=== PATIENT | female | born 1965 | race Caucasian/White ===

== ENCOUNTER 2021-10-06 10:46 | Inpatient (IN) ==
--- NOTE | 2021-09-21 11:41 | PAT Medication Instructions ---
Medication Instructions Date of Service September 21, 2021 Home Medications albuterol sulfate 90 mcg/actuation aerosol inhaler 2 puff INHALATION QID PRN fluticasone 500 mcg-salmeterol 50 mcg/dose blistr powdr for inhalation (Advair Diskus) 1 inh INHALATION BID ipratropium 0.5 mg-albuterol 3 mg (2.5 mg base)/3 mL nebulization soln 3 ml INHALATION QID PRN montelukast 10 mg tablet (Singulair) 10 mg PO QAM multivitamin 1 cap PO QAM diclofenac sodium 75 mg tablet,delayed release 75 mg PO BID tramadol 50 mg tablet 50 mg PO BID ASK your surgeon for instructions diclofenac sodium 75 mg tablet,delayed release 75 mg PO BID DO NOT take the morning of surgery montelukast 10 mg tablet (Singulair) 10 mg PO QAM multivitamin 1 cap PO QAM Take morning of surgery With a small sip of water, OTHERWISE NOTHING TO EAT OR DRINK AFTER MIDNIGHT: albuterol sulfate 90 mcg/actuation aerosol inhaler 2 puff INHALATION QID PRN (use if needed; please bring rescue inhaler with you to hospital day of surgery if possible) fluticasone 500 mcg-salmeterol 50 mcg/dose blistr powdr for inhalation (Advair Diskus) 1 inh INHALATION BID ipratropium 0.5 mg-albuterol 3 mg (2.5 mg base)/3 mL nebulization soln 3 ml INHALATION QID PRN (if needed) tramadol 50 mg tablet 50 mg PO BID (okay to take up to 4 hours prior to surgery if needed) Take evening before surgery albuterol sulfate 90 mcg/actuation aerosol inhaler 2 puff INHALATION QID PRN (if needed) fluticasone 500 mcg-salmeterol 50 mcg/dose blistr powdr for inhalation (Advair Diskus) 1 inh INHALATION BID ipratropium 0.5 mg-albuterol 3 mg (2.5 mg base)/3 mL nebulization soln 3 ml INHALATION QID PRN (if needed) tramadol 50 mg tablet 50 mg PO BID Other Notes If you have any questions please call us at [phone] or [phone] or [phone] or [phone]
--- NOTE | 2021-09-23 11:36 | Anesthesiology Consultation ---
Date of Service September 23, 2021 Assessment & Plan (1) Encounter for pre-operative examination: Chart Review Chart Review: Acceptable Risk for Surgery (pending surgeon ordered PCP clearance (09/30/21) and preop Covid testing results ) and Patient seen in Pre Admission Testing Awaiting surgeon ordered PCP clearance scheduled 09/30/21 Per PAT appt on 09/23/21, patient denies any recent travel or large group activities. No known Covid positive exposures or Covid related symptoms. No known Covid infection in the past 90 days. Pt is vaccinated for Covid. Preop Covid testing scheduled 10/04/21= will await results. Educated on importance of self quarantining, social distancing and wearing mask in public for the patient one week prior to surgery and after Covid testing done Consults Requested Pre-Anesthesia Teaching/Discussion Notes: Instructed NPO after midnight before surgery,except medications with 15 cc of water. Medication instructions prov ided according to the PAT guidelines. History Surgery Operation Date: 10/06/21 13:15 Proposed Procedures p Left Total Shoulder Arthroplasty Reverse - Des Hancock MD Height/Weight Height: 5 ft 2.5 in Weight: 125.5 kg Allergies Allergy/AdvReac Type Severity Reaction Status Date / Time codeine AdvReac Vomiting Verified 09/21/21 10:07 Medications Home Medications Medication Instructions Recorded Confirmed Last Taken albuterol sulfate 90 mcg/actuation 2 puff INHALATION QID PRN 07/28/20 09/21/21 08/12/20 08:44 aerosol inhaler fluticasone 500 mcg-salmeterol 50 1 inh INHALATION BID 07/28/20 09/21/21 08/12/20 06:30 mcg/dose blistr powdr for inhalation (Advair Diskus) ipratropium 0.5 mg-albuterol 3 mg 3 ml INHALATION QID PRN 07/28/20 09/21/21 08/12/20 06:30 (2.5 mg base)/3 mL nebulization soln montelukast 10 mg tablet 10 mg PO QAM 07/28/20 09/21/21 08/12/20 03:45 (Singulair) multivitamin 1 cap PO QAM 07/28/20 09/21/21 08/11/20 10:00 diclofenac sodium 75 mg 75 mg PO BID 03/15/21 09/21/21 Unknown tablet,delayed release tramadol 50 mg tablet 50 mg PO BID 03/15/21 09/21/21 Unknown Past Medical History Medical History Asthma Controlled Chronic back pain Chronic obstructive pulmonary disease Degenerative disc disease Morbid obesity Osteoarthritis Exercise / Class Metabolic Activity III < 4 Walking/Shop/Light housework (one flight of stairs - no chest pain, mild SOB ) Past Surgical History Surgical History History of bilateral tubal ligation History of section x2 History of colonoscopy History of repair of rotator cuff Left shoulder arthroscopy (08/12/20): Grade 3 view, MAC3.0, ETT 7.0 + PNB at [facility] History of tooth extraction History of total hip arthroplasty left S/P epidural steroid injection Past Anesthesia History No Hx of Anesthesia Complications (with exception to being mildly "emotional" post op ) and No Family Hx of Anesthesia Complications History of PONV No Hx of PONV and No Hx of Motion Sickness Social History Smoking Status: Former smoker tobacco type: cigarettes Do You Dip or Chew Tobacco: No Smoking End Date: 5 years ago Hx Alcohol Use: No Hx Substance Use: No substance use type: does not use Review of Systems Rare reflux - relieved with either Tums or Prilosec- feels diet dependent Occ snoring - no known witnessed apnea - hx of sleep study >10 years ago- no known YISSEL Patient denies chest pain, shortness of breath at rest cough, wheezing, palpitations. No hx of seizures, stroke, ID. No hx of blood clots or blood transfusions Physical Exam Vital Signs VITALS BP 120/88 P 88 TEMP 98.4 SP02 96% RESP 16 Constitutional no acute distress ENMT Mouth: no TMJ clicking Thyromental Distance: > or= 3.5 Finger Breadths (3.5) Mallampati Class: I Partial upper denture Neck neck extension not limited Respiratory normal respiratory effort; no respiratory distress Auscultation: lungs clear to auscultation bilaterally and + diminished lung sounds (throughout ); no wheezes Cardiovascular Rate/Rhythm: regular rate and regular rhythm Heart Sounds: no murmur Vessels: no carotid bruit Musculoskeletal Spine: no pain with cervical ROM Extremities: extremities normal to inspection Psychiatric Orientation: alert Lab Results Anesthesia Preop Results Results Anesthesia Widget: WBC 9.18 K/uL (4.8-10.8) 09/23/21 Hgb 14.7 g/dL (12.0-16.0) 09/23/21 Hct 44.2 % (37-47) 09/23/21 Plt 335 K/uL (130-400) 09/23/21 Na 139 mmol/L (136-145) 09/23/21 K 4.7 mmol/L (3.5-5.1) 09/23/21 Cl 106 mmol/L (98-107) 09/23/21 CO2 25 mmol/L (21-32) 09/23/21 BUN 16 mg/dl (6-23) 09/23/21 Creat 0.66 mg/dl (0.6-1.2) 09/23/21 Glucose Level 106 mg/dl (70-99(Fasting)) H 09/23/21 PT 10.3 Seconds (9.0-12.0) 09/23/21 PTT 27.9 Seconds (21.0-31.0) 09/23/21 INR 1.0 (0.9-1.1) 09/23/21 HA1c 5.6 % (4.5-5.6) 09/23/21 Urine Color Dark Yellow 09/23/21 Urine Appearance Clear (Clear) 09/23/21 Urine pH 5.0 (4.5-7.5) 09/23/21 Urine Specific [place] > 1.045 (1.000-1.030) H 09/23/21 Urine Protein Trace (Negative) H 09/23/21 Urine Glucose (UA) Negative (Negative) 09/23/21 Urine Ketones Trace (Negative) H 09/23/21 Urine Blood Negative (Negative) 09/23/21 Urine Nitrite Negative (Negative) 09/23/21 Urine Bilirubin 1+ (Negative) H 09/23/21 Urine Urobilinogen Negative (Negative) 09/23/21 Urine Leukocyte Esterase Trace (Negative) H 09/23/21 Urine WBC (Auto) 1-5 /hpf (0-5) 09/23/21 Urine RBC (Auto) 0-4 /hpf (0-4) 09/23/21 Urine Hyaline Casts (Auto) 1-5 /lpf (0-5) 09/23/21 Urine Epithelial Cells (Auto) 20-30 /lpf (0-5) H 09/23/21 Urine Bacteria (Auto) Negative (Negative) 09/23/21 Blood Type A Positive 09/23/21 Antibody Screen NEGATIVE 09/23/21 Testing Electrocardiogram Date: 09/23/21 Findings: + NSR @ (76bpm ) Normal EKG per cardio. Chest X-Ray Date: 03/14/21 Findings: + NAD
--- NOTE | 2021-10-05 10:36 | History & Physical Report ---
Date of Service October 05, 2021 Assessment & Plan (1) Avascular necrosis of left humeral head: Plan: Patient has findings consistent with avascular necrosis of her left humeral head with a large retracted full-thickness rotator cuff tear. Treatment options discussed the patient. She has failed conservative measures. Definitive treatment would be shoulder replacement. Risks, benefits and alternatives to surgery including but not limited to infection, DVT, pain, stiffness, need for revision surgery, damage to blood vessels, damage to nerves, PE, , were discussed with the patient and they wish to proceed. Plan will be for left reverse total shoulder arthroplasty. Surgery is scheduled for October 06, 2021 at [facility] with Dr. Hancock. All questions are answered. She will follow up postoperatively. History of Present Illness Chief Complaint: Left shoulder pain Primary Care Provider: Anabelle Juarez PA-C Patient is a 55-year-old female with past medical history significant for asthma, COPD who is having continued left shoulder pain. She previously underwent left shoulder rotator cuff repair of a massive retracted rotator cuff tear. Due to persistent pain and dysfunction, difficulty completing daily and work activities follow-up imaging was obtained. Demonstrated massive retracted tear of the rotator cuff with avascular necrosis of her humeral head. She has failed conservative measures including therapy and anti-inflammatories. She would like to proceed with surgical intervention. Patient denies headaches, sweats, fevers, chills, double vision, blurred vision, cough, sore throat, dysphagia, chest pain, sob, wheezing, n/v/d/c, numbness, tingling, fatigue, urinary symptoms, mood disorders. ROS positive for Left shoulder pain and stiffness. Allergies Allergy/AdvReac Type Severity Reaction Status Date / Time codeine AdvReac Vomiting Verified 09/21/21 10:07 Home Medications Medication Instructions Recorded Confirmed Type albuterol sulfate 90 mcg/actuation 2 puff INHALATION QID PRN 07/28/20 09/21/21 History aerosol inhaler fluticasone 500 mcg-salmeterol 50 1 inh INHALATION BID 07/28/20 09/21/21 History mcg/dose blistr powdr for inhalation (Advair Diskus) ipratropium 0.5 mg-albuterol 3 mg 3 ml INHALATION QID PRN 07/28/20 09/21/21 History (2.5 mg base)/3 mL nebulization soln montelukast 10 mg tablet 10 mg PO QAM 07/28/20 09/21/21 History (Singulair) multivitamin 1 cap PO QAM 07/28/20 09/21/21 History diclofenac sodium 75 mg 75 mg PO BID 03/15/21 09/21/21 History tablet,delayed release tramadol 50 mg tablet 50 mg PO BID 03/15/21 09/21/21 History Past Med/Surg History Medical History Asthma Controlled Chronic back pain Chronic obstructive pulmonary disease Degenerative disc disease Morbid obesity Osteoarthritis Surgical History History of bilateral tubal ligation History of section x2 History of colonoscopy History of repair of rotator cuff Left shoulder arthroscopy (08/12/20): Grade 3 view, MAC3.0, ETT 7.0 + PNB at [facility] History of tooth extraction History of total hip arthroplasty left S/P epidural steroid injection Social History Smoking Status: Former smoker Second Hand Exposure: No; Hx Alcohol Use: No Hx Substance Use: No Preferred Language: Ukrainian Communication Ability: Effective Eligibility Supervisor Required: No Beliefs That Will Affect Care: None Current Living Situation: Family Feels Safe at Home: Yes Assistive Devices: Contacts, Denture - Upper and Glasses Review of Systems All systems reviewed & are unremarkable except as noted in HPI & below Physical Exam Constitutional: well developed and well nourished; no acute distress Eyes: PERRL, conjunctivae normal, anicteric sclerae ENMT: external ear and nose normal, oropharynx normal Neck: trachea midline, no thyromegaly Respiratory: normal respiratory effort, lungs clear to auscultation Cardiovascular: RRR, no murmur, no edema Musculoskeletal: Left shoulder: Well-healed surgical scars. She has positive impingement signs. Positive crepitation with range of motion but diffuse tenderness most severe anterior glenoid. Active range of motion abduction to 90 degrees forward flexion to 100 degrees. Significant weakness with strength. Skin: no rashes, warm and dry Neurologic: patellar DTR's 2+ bilat, sensation intact Psychiatric: A+Ox3, euthymic affect Results & Data ([facility]) Diagnostic Findings Left shoulder:X-rays of her left shoulder demonstrate that she has some further proximal migration of the humerus, and she has had distal clavicle excision and decompression, which were satisfactory. She has significant flattening of the humeral head consistent with avascular necrosis. Glenoid bone structure is still intact and normal. Four-view x-rays left shoulder. MRI demonstrates a retracted full-thickness tear of the rotator cuff with humeral head elevation, flattening of humeral head consistent with AVN.
[~2021-10-06 10:46] MED LIST: ACETAMINOPHEN 500 MG TAB PO SCH; BUPIVACAINE 0.5 % 5 MG/1 ML PF 10ML VIAL ONE; CeleBREX 200 MG CAP PO SCH; FAMOTIDINE 20 MG TAB PO SCH; GABAPENTIN 600 MG DOSE PO SCH; LR 15ML/HR IV SCH; METOCLOPRAMIDE HCL 10 MG TABLET PO SCH; TRANEXAMIC ACID 1,000 MG **IV Intra-op IV SCH; TRANEXAMIC ACID 1,000 MG **IV Pre-op IV SCH; dexAMETHasone 4 MG TAB PO SCH
[2021-10-06] MEDS ORDERED: fentaNYL citrate 100 MCG/2 ML VIAL IV PRN (11:58)
[2021-10-06] MEDS ORDERED: ePHEDrine sulfate 50 MG/ML AMP IV PRN (11:58)
[2021-10-06] MEDS ORDERED: ONDANSETRON INJ 2 MG/ML 2 ML VIAL IV PRN ×2 (11:58→19:30)
[2021-10-06] MEDS ORDERED: ATROPINE SULFATE 0.1 MG/ML 10ML SYR IV PRN (11:58)
[2021-10-06] MEDS ORDERED: DEXAMETHASONE SOD INJ 4 MG/ML VIAL ONE (13:59)
[2021-10-06] MEDS ORDERED: PROPOFOL IV EMULSION 10 MG/ML 20 ML VIAL IV ONE (13:59)
[2021-10-06] MEDS ORDERED: ROCURONIUM BROMIDE 10 MG/ML 5 ML VIAL IV ONE ×5 (13:59→16:17)
[2021-10-06] MEDS ORDERED: ONDANSETRON INJ 2 MG/ML 2 ML VIAL ONE (13:59)
[2021-10-06] MEDS ORDERED: fentaNYL citrate 100 MCG/2 ML VIAL ONE (14:00)
[2021-10-06] MEDS ORDERED: MIDAZOLAM HCL 1 MG/ML 2ML VIAL ONE (14:00)
--- NOTE | 2021-10-06 14:54 | History & Physical Bridge Note ---
Date of Service October 06, 2021 History & Physical Bridge Note I have examined the patient, reviewed the History & Physical and in the interval since the performance of the History & Physical I have noted the following changes of clinical significance: no changes noted
[2021-10-06] MEDS ORDERED: ceFAZolin 330 MG/ML 1 GM VIAL ONE (15:29)
[2021-10-06] MEDS ORDERED: ALBUTEROL HFA INHALER 8.5 GM ONE (16:29)
[2021-10-06] MEDS ORDERED: GLYCOPYRROLATE 0.2 MG/ML VIAL ONE (17:32)
[2021-10-06] MEDS ORDERED: NEOSTIGMINE METHYLSULFATE 1 MG/ML 10ML VIAL ONE (17:32)
--- NOTE | 2021-10-06 18:02 | Operative Report ---
Post Operative Report Pre & Post Diagnosis Operation Date: 10/06/21 13:20 Pre-Op Diagnosis: Left Shoulder Avascular Necrosis, Failed Left Shoulder rotator cuff repair, rotator cuff arthropathy, obesity BMI 49.9 Post-Op Diagnosis: Left Shoulder Avascular Necrosis, Failed Left Shoulder rotator cuff repair, rotator cuff arthropathy, obesity BMI 49.9 I identified the patient and participated in the time-out.: Yes Procedure Operation Date: 10/06/21 13:20 Actual Procedures p Left Total Shoulder Arthroplasty Reverse, excision suture anchor and suture ma terial, increased difficulty obesity BMI 49.9 Des Hancock MD Surgeon Des Hancock MD Sample Worker Mando JARAMILLO Estimated Blood Loss 200 Findings Consistent with Post-Op Diagnosis Specimens Humeral head Drains 2 Hemovac Complications none Disposition Accompanied Patient To Recovery: No Disposition: Recovery Room Indications 55-year-old female who had a work-related injury left shoulder. She had a massive retracted rotator cuff tear. Due to the acuity of the tear was elected to proceed with rotator cuff repair however at the time of surgery also unable to get a complete repair only able to get partial repair and we used biceps tendon type SCR as a check rein to help prevent superior migration. Radiographically patient did well with no superior migration initially but did not get complete pain relief at all with time and therapy and had progressive disability over time and follow-up radiographs demonstrated flattening of the humeral head and collapse and developing of rotator cuff arthropathy. Patient is [id number] now. Description of Procedure The patient was taken to the operating room and anesthetized under regional block and general anesthetic. The patient was positioned on the operating table in a 30 beach chair position with a towel roll under the medial border of the left scapula. The arm was draped free to be able to manipulate the shoulder as needed. The left upper extremity was prepped and draped in usual sterile fashion. Exam demonstrated she had morbid obesity with a body abdominal area and into the shoulder chest area and obesity around the shoulder. External rotation range of motion to 80 degrees abduction to 90 degrees forward flexion to 140 degrees with [id number] crepitation of the shoulder. An anterior deltopectoral approach was performed. A longitudinal incision was made in the deltopectoral interval. The skin was incised sharply. Subcutaneous flaps were elevated off the fascia. The cephalic vein was dissected out and retracted lateral with the deltoid. The clavipectoral fascia was divided at the lateral margin of the conjoined tendon and extended up to the CA ligament. The following findings were noted: There was an intact subscapularis tendon and some of the anterior supraspinatus rotator cuff tissue was still intact. Made of the supraspinatus tendon was torn and the anterior infraspinatus was torn in the posterior infraspinatus and teres minor was intact. Some of the posterior sutures in the infraspinatus were still intact but the superiormost anchor and sutures did not hold the tissue which failed by soft tissue failure. The upper centimeter of the pectoralis was released for inferior exposure. A self-retaining retractor was placed. The biceps tendon findings demonstrated ab sent biceps due to previous tenotomy and use of biceps as SCR. The subscapularis muscle fibers were split longitudinally at the level of the circumflex vessels. The circumflex vessels were identified and tied off with silk ties and divided laterally. A Kitner elevator was used to free up the inferior fibers of the subscapularis off of the capsule. The axillary nerve was identified with a tug test and protected with a blunt Jason retractor between the nerve and the capsule. The subscapularis tendon was then taken down off of the lesser tuberosity subperiosteally, a Vicryl traction suture was placed and a subperiosteal dissection was performed along the neck of the humerus as the arm was gradually externally rotated exposing the humeral head. The humeral head findings demonstrated flattening of the inferior humeral head but the humeral head was very hard bone at this point no softening. There is no substantial inferior osteophytes noted. A Cobos elevator was used to assist in releasing the capsule of the neck of the humerus. The capsule was divided with Joaquin scissors down to the glenoid released off the anterior glenoid and the rotator interval was released to meet the capsular release and a 360 release of the subscapularis was accomplished. A Fukuda retractor was placed into the joint retracting the humeral head posterior. Glenoid findings demonstrated 75% of the glenoid was down to bone was eburnated hard bone with some posterior superior wear pattern. The labrum was resected. an anterior-inferior and posterior inferior capsular release were performed with electrocautery and a Cobos elevator on bone with the axillary nerve protected inferiorly by the retractor. Attention was then taken to the humeral preparation. The cutting guide was placed into the humeral head. It was positioned at 20 of retroversion. Oscillating saw was used to resect the humeral head giving the cut above the level of the posterior rotator cuff insertion site. The humerus was then prepared for the stem. I first have to to remove 1 suture anchor and some suture material in order to pass the broaches and the awl into the intramedullary canal. I used the ascend flex stem from [facility]. The sizing broaches were used followed by trial broaches up to a size 3B long which had the appropriate fit and fill. The appropriate sized cut protector was placed. The humerus was then retracted posterior to the glenoid. The glenoid was sized for a 25 mm baseplate. The guide for the baseplate was positioned in a 10 inferior tilt and the central drill hole was made. The reamer for the 25 baseplate was used. The central drill was widened for the peg. The 20 aequalis hydroxyapatite-coated 25 mm baseplate was impacted into position. The base plate was transfixed with superior and inferior locking screws and anterior and posterior compression screws with stable fixation. The fan reamer was used for the 36 millimeter glenoid sphere. After irrigation with pulsatile saline solution with Ancef the 36 mm standard glenoid sphere was impacted onto the baseplate and the security screw was tightened. Attention was taken back to the humerus. The cut protector was removed and the plus or high offset humeral tray trial was assembled to the trial stem rotated appropriately to get bony coverage and then screwed in position. A trial reduction was performed. A +6, reversed trial insert demonstrated good stability and no shuck. The trials were removed. 3 drill holes are made into the harder bone in the bicipital groove area and 3 #5 FiberWire sutures were placed transosseously. The canal was irrigated with antibiotic solution with bacitracin. The final component was assembled. The final component was 3B long ascend flex stem assembled to plus or high offset tr ay and a +6 reversed polyethylene insert. This was then impacted into the humerus with a tight press-fit. It was reduced to the glenoid sphere. Stability was verified. Subscapularis was repaired with the #5 FiberWire sutures using Yvon-Eric suture technique. Lateral row soft tissue repair was performed with #2 FiberWire [id number] sutures. The pectoralis was repaired with #2 FiberWire [id number] sutures. The arm was taken through a range of motion which demonstrated 160 degrees of flexion, 100 degrees abduction, 60 degrees external rotation without tension on repair. The implant was stable through the range of motion tested. The wound was copiously irrigated. 2 Hemovac drains were placed. The deltopectoral interval was closed with [id number] #1 Vicryl sutures. The subcutaneous tissues were closed with 2-0 Vicryl sutures. The skin was closed with alexei. There was increased level difficulty requiring some increased time and procedure approximately 25 to 30 minutes. Patient also has some generalized slightly more than typical bleeding throughout the procedure that took additional time. Sterile dressings were applied and a shoulder immobilizer. Mando JARAMILLO, my physician internet marketing assistant, acted as training assistant throughout the procedure .He performed functions including patient positioning, arm positioning, prepping and draping, soft tissue retraction, instrument management, suture management and performed the subcutaneous and skin closure and will participate in the postoperative care of the patient. I attest to the content of the Intraoperative Record and any orders documented therein. Any exceptions are noted below.
--- NOTE | 2021-10-06 18:28 | XRay Report ---
XR shoulder LT min 2V routine CLINICAL HISTORY: Post shoulder surgery COMPARISON: None FINDINGS: Alignment of the reverse total left shoulder arthroplasty is anatomic. No periprosthetic f racture or unexpected radiopaque foreign body. There are skin alexei and surgical drains. Linear lef t basilar opacities favor atelectasis. IMPRESSION: Expected findings following reverse total left shoulder arthroplasty. ACT 112: Negative or not required by law. Electronically signed by: Markus Castrejon M.D. 10/06/2021 6:26 PM
--- NOTE | 2021-10-06 18:55 | Anesthesiology Progress Note ---
Date of Service October 06, 2021 Anesthesia Post Procedure Vital Signs Vital Signs: Temp Pulse Pulse Resp BP Pulse Ox 10/06/21 18:45 36.3 C L 74 20 107/76 92 10/06/21 18:35 80 16 133/84 92 10/06/21 18:25 78 22 136/77 93 10/06/21 18:15 85 21 140/91 96 10/06/21 18:08 36.0 C L 93 H 16 130/105 H 96 10/06/21 11:28 37.6 C H 88 20 141/78 H 95 Pain Intensity Left Shoulder: Pain Intensity: 3 Transfer of Care Handoff Completed per policy Notes Mental Status: alert / awake / arousable and participated in evaluation Patient Amnestic to Procedure: Yes Nausea / Vomiting: adequately controlled Pain: adequately controlled Airway Patency, RR, SpO2: stable & adequate BP & HR: stable & adequate Hydration State: stable & adequate Anesthetic Complications: no major complications apparent and Pt Satisfied with anesthetic care
[2021-10-06] MEDS ORDERED: ALBUTEROL HFA 8 GM INHALER INH PRN (19:30)
[2021-10-06] MEDS ORDERED: HYDROmorphone INJ 0.5 MG/0.5 ML SYR IV PRN (19:30)
[2021-10-06] MEDS ORDERED: NALOXONE HCL 0.4 MG/1 ML VIAL/CARP IV PRN (19:30)
[2021-10-06] MEDS ORDERED: MAGNESIUM HYDROXIDE SUSP 30 ML UDC PO PRN (19:30)
[2021-10-06] MEDS ORDERED: oxyCODONE HCL IR 5 MG TAB (IMMEDIATE RELEASE) PO PRN (19:30)
[2021-10-06] MEDS ORDERED: METOCLOPRAMIDE HCL INJ 5 MG/ML 2 ML VIAL IV PRN (19:30)
[2021-10-06] MEDS ORDERED: ALBUT/IPRATROP 3MG/0.5MG NEB 3 ML VIAL INH PRN (19:30)
[2021-10-06] MEDS ORDERED: bisacodyL 10 MG SUPP PR PRN (19:30)
--- NOTE | 2021-10-06 20:13 | Consultation ---
Date of Consultation October 06, 2021 Assessment & Plan (1) S/p reverse total shoulder arthroplasty: (2) Avascular necrosis of left humeral head: Post op day# 0 S/P Left Reverse Total Shoulder by Dr Hancock EBL#200ml pain management per ortho wound management per ortho PT/OT as appropriate DVT prophylaxis per ortho incentive spirometry monitor H&H for acute blood loss anemia; pre-op Hgb: 14.7 (3) Asthma: (4) Chronic obstructive pulmonary disease: No signs acute exacerbation Reports uses albuterol/duoneb 2-3 times a day at baseline Continue home inhalers and duoneb prn (5) Morbid obesity: BMI: 49 Lifestyle modifications recommended DVT Prophylaxis SCDs per ortho Disposition per primary service Follows with Dr Schilling in [place] for routine care Pt was seen and care coordinated with Dr Blanton. See addendum Supervising Physician Co-Signing Physician Notes IM ATTENDING : Patient seen and examined. History obtained from patient and records. Preceding documentation by Ms. Karine Carcamo PA-C reviewed. Final Assessment and Recommendations as follows : Avascular necrosis left humeral head status post surgery Patient comfortable Asthma/COPD, stable Prediabetes, hemoglobin A1c of 5.07 February 2020 Past tobacco abuse Continue patient maintenance asthma/COPD inhalers DVT prophylaxis. Aspirin twice daily as per postop Orthopedic orders. Thank you very much for this consultation. Dr. Mann will follow patient's progress. Text document was generated using [employer] voice recognition software. It may contain grammatical or spelling errors. Kindly contact undersigned for clarification of any documentation item in question. History of Present Illness Requesting Physician: Dr Hancock Reason for Consultation: Postop medical management Attending Physician: Des Hancock MD History of Present Illness Patient is 55-year-old female with PMH asthma, COPD, obesity seen in medical consultation s/p left reverse total shoulder arthroplasty today by Dr. Hancock. Postop patient reports is doing well. Denies any current pain. Has some tingling to left thumb, is able to move her fingers. Denies nausea, vomiting, shortness of breath, wheezing, chest pain. Reports last BM approximately 3 days ago. Reports at baseline uses her rescue inhaler 2-3 times a day. Denies fever/chills, diaphoresis, BOYLE, dizziness, syncope, vision changes, neck pain, CP, SOB, orthopnea, palpitations, cough, choking, rhinorrhea, abdominal pain, weakness, extremity edema, rashes, urinary symptoms. Allergies Allergy/AdvReac Type Severity Reaction Status Date / Time codeine AdvReac Intermediate Vomiting Verified 10/06/21 11:16 Home Medications Medication Instructions Recorded Confirmed Type albuterol sulfate 90 mcg/actuation 2 puff INHALATION QID PRN 07/28/20 10/06/21 History aerosol inhaler fluticasone 500 mcg-salmeterol 50 1 inh INHALATION BID 07/28/20 10/06/21 History mcg/dose blistr powdr for inhalation (Advair Diskus) ipratropium 0.5 mg-albuterol 3 mg 3 ml INHALATION QID PRN 07/28/20 10/06/21 History (2.5 mg base)/3 mL nebulization soln montelukast 10 mg tablet 10 mg PO QAM 07/28/20 10/06/21 History (Singulair) multivitamin 1 cap PO QAM 07/28/20 10/06/21 History diclofenac sodium 75 mg 75 mg PO BID 03/15/21 10/06/21 History tablet,delayed release tramadol 50 mg tablet 50 mg PO BID 03/15/21 10/06/21 History acetaminophen 500 mg tablet 1,500 mg PO Q12 PRN 10/06/21 10/06/21 History (Tylenol Extra Strength) Patient History Medical History (Updated 10/06/21 @ 20:49 by Karine Carcamo PA-C) Asthma Controlled Chronic back pain Chronic obstructive pulmonary disease Degenerative disc disease Morbid obesity Osteoarthritis Surgical History (Updated 10/06/21 @ 20:49 by Karine Carcamo PA-C) History of bilateral tubal ligation History of section x2 History of colonoscopy History of repair of rotator cuff Left shoulder arthroscopy (08/12/20): Grade 3 view, MAC3.0, ETT 7.0 + PNB at [facility] History of tooth extraction History of total hip arthroplasty left S/P epidural steroid injection S/p reverse total shoulder arthroplasty Left, 10/06/21, Dr Hancock Family History (Updated 10/06/21 @ 20:53 by Karine Carcamo PA-C) Mother Dyslipidemia Father Heart disease Social History Smoking Status: Former smoker Smoking End Date: 5 years ago; Second Hand Exposure: No; Do You Dip or Chew Tobacco: No; Tobacco Cessation Education Requested by Patient: No Hx Alcohol Use: No Hx Substance Use: No Preferred Language: French Communication Ability: Effective Lapel Stitcher Required: No Beliefs That Will Affect Care: None Current Living Situation: Family Feels Safe at Home: Yes Safety Concerns: Feels Safe At This Time Assistive Devices: Contacts, Denture - Upper and Glasses Review of Systems Review of Systems: All systems reviewed & are unremarkable except as noted in HPI & below Physical Exam Physical Exam: General: no distress, obese Head: normocephalic, atraumatic Eyes: PERRL, EOM's intact, conjunctiva non-injected, anicteric ENT: normal inspection external ears, nose, mucous membranes moist Neck: supple, trachea midline Lungs: clear, no respiratory distress, no wheezing/rhonchi/rales CV: RRR, no murmur, no pretibial edema Abd: protuberant, normal BS, soft, non-tender Ext: no cyanosis, no calf tenderness; LUE: +surgical dressing dry and intact to left shoulder, +hemovac in place, +shoulder immobilizer in place, pt able to move fingers, distal pulses palpable. Neuro: A&O x 3, no focal deficits noted, normal affect Skin: warm, dry Results & Data ([facility]) Vital Signs (Past 12 Hours) Vital Signs Temp Pulse Pulse Resp BP Pulse Ox 10/06/21 19:15 74 20 116/75 93 10/06/21 19:00 75 14 114/79 93 10/06/21 18:45 36.3 C L 74 20 107/76 92 10/06/21 18:35 80 16 133/84 92 10/06/21 18:25 78 22 136/77 93 10/06/21 18:15 85 21 140/91 96 10/06/21 18:08 36.0 C L 93 H 16 130/105 H 96 10/06/21 11:28 37.6 C H 88 20 141/78 H 95
[2021-10-06] MEDS ORDERED: SENNA 8.6 MG TAB PO SCH (21:00)
[2021-10-06] MEDS: DOCUSATE SODIUM 100 MG CAP PO SCH (21:36)
[2021-10-06] MEDS: SODIUM CHLORIDE 0.9% 1000ML 1,000 ML IV SCH (21:36)
[2021-10-06] MEDS: ASPIRIN 81 MG ECTAB PO SCH (21:36)
[2021-10-06] MEDS: ACETAMINOPHEN 500 MG TAB PO SCH (21:37)
[2021-10-06] MEDS ORDERED: CALCIUM CARBONATE 500 MG CHEWABLE TAB PO PRN (21:47)
[2021-10-06] MEDS: ceFAZolin 2000MG 2,000 MG/15 ML SYR IV SCH (23:57)
[2021-10-07] MEDS: SODIUM CHLORIDE 0.9% 1000ML 1,000 ML IV SCH (05:27)
[2021-10-07] MEDS: ACETAMINOPHEN 500 MG TAB PO SCH (05:30)
[2021-10-07 07:22] LABS: Eosinophils # (auto) 0.01 K/uL (0-0.5); Eosinophils % (auto) 0.1 %; Hematocrit (blood only) 38.9 % (37-47); Hemoglobin 12.5 g/dL (12.0-16.0); Immature Granulocytes # (auto) 0.05 K/uL (0.00-0.02); Immature Granulocytes % (auto) 0.3 %; Lymphocytes # (auto) 1.16 K/uL (1.2-3.4); Mean Corpuscular Hemoglobin 30.2 pg (25-34); Mean Corpuscular Hgb Conc 32.1 g/dL (32-36); Mean Platelet Volume 11.1 fL (7.4-10.4); Monocytes # (auto) 0.79 K/uL (0.11-0.59); Monocytes % (auto) 4.8 %; Neutrophils # (auto) 14.55 K/uL (1.4-6.5); Neutrophils % (auto) 87.8 %; Platelet Count 286 K/uL (130-400); RDW Coefficient of Variation 13.9 % (11.5-14.5); RDW Standard Deviation 47.5 fL (36.4-46.3); Red Blood Count 4.14 M/uL (4.2-5.4); White Blood Count 16.56 K/uL (4.8-10.8)
[2021-10-07 07:42] LABS: BUN Creatinine Ratio 17.6 (10-20); Calcium 8.4 mg/dl (8.5-10.1); Creatinine Clr Calc Pharmacy 118.2 ml/min; Est GFR (African American) 113.3 ml/min; Est GFR (Non-African American) 97.8 ml/min; Potassium 4.1 mmol/L (3.5-5.1)
[2021-10-07] MEDS: DOCUSATE SODIUM 100 MG CAP PO SCH (07:59)
[2021-10-07] MEDS: ASPIRIN 81 MG ECTAB PO SCH (08:01)
[2021-10-07] MEDS: ceFAZolin 2000MG 2,000 MG/15 ML SYR IV SCH (08:02)
[2021-10-07] MEDS ORDERED: FLUTICASONE/VILANTEROL 200/25MCG 14 PUFFS/INHALER INH SCH (09:00)
[2021-10-07] MEDS ORDERED: MONTELUKAST SODIUM 10 MG TABLET PO SCH (09:00)
[2021-10-07] MEDS ORDERED: MULTIVITAMIN TAB PO SCH ×2 (09:00)
--- NOTE | 2021-10-07 12:16 | Orthopedic Progress Note ---
Date of Service October 07, 2021 Assessment & Plan (1) S/p reverse total shoulder arthroplasty: Plan: Postop day 1 status post left total shoulder arthroplasty reverse PT/OT protocols. Nonweightbearing left upper extremity. DVT prophylaxis-aspirin p.o. daily Pain management as written. DC planning-patient planning for discharge to home today. Admission and Anticipated Discharge Date Admission Date: October 06, 2021 Subjective Postop day 1 Patient sitting in chair at the bedside. States that she continues to have good pain control with her nerve block. States she has some residual numbness in her left thumb. She apparently had some slight shortness of breath earlier today however was treated with a nebulizer and feels well. [facility] and her lungs are clear and no plans for further work-up. Physical Exam Physical Exam: Dressings are clean, dry, and intact. Hemovac drainage is approximate 25 mL from the previous shift. She has some residual numbness in her left thumb but has good range of motion of her fingers and wrist. Capillary refill is less than 2 seconds. Results & Data ([facility]) Vital Signs (Past 12 Hours) Vital Signs Temp Pulse Pulse Resp BP Pulse Ox 10/07/21 10:53 82 20 L 20 98 10/07/21 10:30 92 10/07/21 07:03 37 C 72 16 129/79 96 10/07/21 03:51 37.1 C 84 18 123/76 92 Laboratory Results Laboratory Results WBC 16.56 K/uL (4.8-10.8) H 10/07/21 06:26 RBC 4.14 M/uL (4.2-5.4) L 10/07/21 06:26 Hgb 12.5 g/dL (12.0-16.0) 10/07/21 06:26 Hct 38.9 % (37-47) 10/07/21 06:26 MCV 94.0 fL (80-100) 10/07/21 06:26 MCH 30.2 pg (25-34) 10/07/21 06:26 MCHC 32.1 g/dL (32-36) 10/07/21 06:26 RDW Std Deviation 47.5 fL (36.4-46.3) H 10/07/21 06:26 RDW Coeff of [place] 13.9 % (11.5-14.5) 10/07/21 06:26 Plt Count 286 K/uL (130-400) 10/07/21 06:26 MPV 11.1 fL (7.4-10.4) H 10/07/21 06:26 Immature Gran % (Auto) 0.3 % 10/07/21 06:26 Neut % (Auto) 87.8 % 10/07/21 06:26 Lymph % (Auto) 7.0 % 10/07/21 06:26 [place] % (Auto) 4.8 % 10/07/21 06:26 Eos % (Auto) 0.1 % 10/07/21 06:26 Baso % (Auto) 0.0 % 10/07/21 06:26 Neut # (Auto) 14.55 K/uL (1.4-6.5) H 10/07/21 06:26 Lymph # (Auto) 1.16 K/uL (1.2-3.4) L 10/07/21 06:26 [place] # (Auto) 0.79 K/uL (0.11-0.59) H 10/07/21 06:26 Eos # (Auto) 0.01 K/uL (0-0.5) 10/07/21 06:26 Baso # (Auto) 0.00 K/uL (0-0.2) 10/07/21 06:26 Immature Gran # (Auto) 0.05 K/uL (0.00-0.02) H 10/07/21 06:26 Sodium 139 mmol/L (136-145) 10/07/21 06:26 Potassium 4.1 mmol/L (3.5-5.1) 10/07/21 06:26 Chloride 106 mmol/L (98-107) 10/07/21 06:26 Carbon Dioxide 28 mmol/L (21-32) 10/07/21 06:26 Anion Gap 5 (3-11) 10/07/21 06:26 BUN 12 mg/dl (6-23) 10/07/21 06:26 Creatinine 0.68 mg/dl (0.6-1.2) 10/07/21 06:26 Est Cr Clr Drug Dosing 118.2 ml/min 10/07/21 06:26 Est GFR ( Amer) 113.3 ml/min 10/07/21 06:26 Est GFR (Non-Af Amer) 97.8 ml/min 10/07/21 06:26 BUN/Creatinine Ratio 17.6 (10-20) 10/07/21 06:26 Glucose 148 mg/dl (70-99(Fasting)) H 10/07/21 06:26 Calcium 8.4 mg/dl (8.5-10.1) L 10/07/21 06:26 SARS-CoV-2, RNA, NAAT NEGATIVE (NEGATIVE) 10/06/21 Unknown Impressions Shoulder X-Ray 10/06/21 18:05 XR shoulder LT min 2V routine CLINICAL HISTORY: Post shoulder surgery COMPARISON: None FINDINGS: Alignment of the reverse total left shoulder arthroplasty is anatomic. No periprosthetic fracture or unexpected radiopaque foreign body. There are skin alexei and surgical drains. Linear left basilar opacities favor atelectasis. IMPRESSION: Expected findings following reverse total left shoulder arthroplasty. ACT 112: Negative or not required by law. Electronically signed by: Markus Castrejon M.D. 10/06/2021 6:26 PM
--- NOTE | 2021-10-07 15:13 | Hospitalist Progress Note ---
Date of Service October 07, 2021 Assessment & Plan (1) S/p reverse total shoulder arthroplasty: (2) Avascular necrosis of left humeral head: Plan: S/P Left Reverse Total Shoulder by Dr Hancock POD#1 Postoperative acute blood loss anemia EBL#200ml pain management, wound management per ortho PT/OT as appropriate DVT prophylaxis per ortho Continue Incentive spirometry Hb dropped to 12.5 No indication for Transfusion (3) Asthma: (4) Chronic obstructive pulmonary disease: Plan: No signs acute exacerbation Reports uses albuterol/duoneb 2-3 times a day at baseline Continue home inhalers and duoneb prn (5) Morbid obesity: Plan: BMI: 49 Lifestyle modifications recommended DVT Prophylaxis SCDs per ortho Disposition per primary service Follows with Dr Schilling in [place] for routine care Admission and Anticipated Discharge Date Admission Date: October 06, 2021 Subjective Patient is seen and examined at bedside Patient denies any significant pain at surgical site Reports having left arm numbness but otherwise feels well Denies any chest pain, shortness of breath, dizziness, nausea, abdominal pain Offers no other complaints Review of Systems Review of Systems: All systems reviewed & are unremarkable except as noted in Subjective Physical Exam Physical Exam: Physical Exam: Vitals signs as noted above General Appearance:Morbidly Obese, no apparent distress Head: normocephalic, Atraumatic Eyes: normal inspection, EOMI Neck: supple, Trachea midline Respiratory/Chest: Decreased breath sounds, CTA, No accessory muscle use Cardiovascular: S1, S2, No murmur Abdomen/GI:Soft, Non tender, Bowel sounds present Extremities/Musculoskeletal:normal inspection, no edema, Left shoulder in Sling Neurologic/Psych:AAOX3, grossly no focal neurological deficits Skin: normal color, warm Results & Data Results & Data ([facility]) Vital Signs (Past 12 Hours) Vital Signs Temp Pulse Pulse Resp BP Pulse Ox 10/07/21 12:44 37 C 82 20 L 20 129/79 98 10/07/21 10:53 82 20 L 20 98 10/07/21 10:30 92 10/07/21 07:03 37 C 72 16 129/79 96 10/07/21 03:51 37.1 C 84 18 123/76 92 Laboratory Results Short CBC 10/07/21 Range/Units 06:26 WBC 16.56 H (4.8-10.8) K/uL Hgb 12.5 (12.0-16.0) g/dL Hct 38.9 (37-47) % Plt Count 286 (130-400) K/uL BMP 10/07/21 06:26 Sodium 139 Potassium 4.1 Chloride 106 Carbon Dioxide 28 BUN 12 Creatinine 0.68 Glucose 148 H Calcium 8.4 L
--- NOTE | 2021-10-09 08:45 | Discharge Summary ---
Date of Service October 09, 2021 Admission HPI Per Admitting Provider Patient is a 55-year-old female with past medical history significant for asthma, COPD who is having continued left shoulder pain. She previously underwent left shoulder rotator cuff repair of a massive retracted rotator cuff tear. Due to persistent pain and dysfunction, difficulty completing daily and work activities follow-up imaging was obtained. Demonstrated massive retracted tear of the rotator cuff with avascular necrosis of her humeral head. She has failed conservative measures including therapy and anti-inflammatories. She would like to proceed with surgical intervention. Patient denies headaches, s weats, fevers, chills, double vision, blurred vision, cough, sore throat, dysphagia, chest pain, sob, wheezing, n/v/d/c, numbness, tingling, fatigue, urinary symptoms, mood disorders. ROS positive for Left shoulder pain and stiffness. Admission Exam Per Admitting Provider Constitutional: well developed and well nourished; no acute distress Eyes: PERRL, conjunctivae normal, anicteric sclerae ENMT: external ear and nose normal, oropharynx normal Neck: trachea midline, no thyromegaly Respiratory: normal respiratory effort, lungs clear to auscultation Cardiovascular: RRR, no murmur, no edema Musculoskeletal: Left shoulder: Well-healed surgical scars. She has positive impingement signs. Positive crepitation with range of motion but diffuse tenderness most severe anterior glenoid. Active range of motion abduction to 90 degrees forward flexion to 100 degrees. Significant weakness with strength. Skin: no rashes, warm and dry Neurologic: patellar DTR's 2+ bilat, sensation intact Psychiatric: A+Ox3, euthymic affect Principal Diagnosis Left shoulder rotator cuff arthropathy, AVN Discharge Exam Physical Exam: Dressings are clean, dry, and intact. Hemovac drainage is approximate 25 mL from the previous shift. She has some residual numbness in her left thumb but has good range of motion of her fingers and wrist. Capillary refill is less than 2 seconds. Constitutional WD/WN, vitals as above Discharge Data Allergies Allergy/AdvReac Type Severity Reaction Status Date / Time codeine AdvReac Intermediate Vomiting Verified 10/06/21 11:16 Consultations 10/01/21 17:09 Consult Hospitalist Routine Procedures Performed Operation Date: 10/06/21 13:20 Actual Procedures p Left Total Shoulder Arthroplasty Reverse(Left) - Des Hancock MD Ordered Studies 10/06/21 05:00 US - OR guided needle placemen Routine Hospital Course (1) S/p reverse total shoulder arthroplasty: Patient presented for same day admission following left reverse TSA on 10/06/21. She tolerated procedure well. The Patient had an uneventful hospital course. Post-operatively,her activity was progressed and well tolerated. They participated in PT without complication. Labs remained stable- lowest hemoglobin recorded: 12.5. Dr. Randall Blanton of medical service was consulted for medical management during admission. Pain controlled on oral medications. Please refer to daily progress notes and PT notes for complete details. After exam on 10/07/21, patient was felt to be stable for discharge home. Patient will f/u in the office in about 2 weeks for further evaluation including x-rays and incision check, sooner if having any issues or concerns. Postop day 1 status post left total shoulder arthroplasty reverse PT/OT protocols. Nonweightbearing left upper extremity. DVT prophylaxis-aspirin p.o. daily Pain management as written. DC planning-patient planning for discharge to home today. Lab Results 10/06/21 10/07/21 10/07/21 Range/Units Unknown 06:26 06:26 WBC 16.56 H (4.8-10.8) K/uL RBC 4.14 L (4.2-5.4) M/uL Hgb 12.5 (12.0-16.0) g/dL Hct 38.9 (37-47) % MCV 94.0 (80-100) fL MCH 30.2 (25-34) pg MCHC 32.1 (32-36) g/dL RDW Std Deviation 47.5 H (36.4-46.3) fL RDW Coeff of [place] 13.9 (11.5-14.5) % Plt Count 286 (130-400) K/uL MPV 11.1 H (7.4-10.4) fL Immature Gran % (Auto) 0.3 % Neut % (Auto) 87.8 % Lymph % (Auto) 7.0 % [place] % (Auto) 4.8 % Eos % (Auto) 0.1 % Baso % (Auto) 0.0 % Neut # (Auto) 14.55 H (1.4-6.5) K/uL Lymph # (Auto) 1.16 L (1.2-3.4) K/uL [place] # (Auto) 0.79 H (0.11-0.59) K/uL Eos # (Auto) 0.01 (0-0.5) K/uL Baso # (Auto) 0.00 (0-0.2) K/uL Immature Gran # (Auto) 0.05 H (0.00-0.02) K/uL Sodium 139 (136-145) mmol/L Potassium 4.1 (3.5-5.1) mmol/L Chloride 106 (98-107) mmol/L Carbon Dioxide 28 (21-32) mmol/L Anion Gap 5 (3-11) BUN 12 (6-23) mg/dl Creatinine 0.68 (0.6-1.2) mg/dl Est Cr Clr Drug Dosing 118.2 ml/min Est GFR ( Amer) 113.3 ml/min Est GFR (Non-Af Amer) 97.8 ml/min BUN/Creatinine Ratio 17.6 (10-20) Glucose 148 H (70-99(Fasting)) mg/dl Calcium 8.4 L (8.5-10.1) mg/dl SARS-CoV-2, RNA, NAAT NEGATIVE (NEGATIVE) Total Time Total Time Spent Total Time Spent (In Minutes): 20 Discharge Plan Discharge Items Patient Disposition: Home - Self-Care Reason For Visit: Left shoulder rotator cuff arthropathy Discharge Diagnosis: Left Shoulder rotator cuff arthropathy Activity: Per Instructions section Weightbearing: Left non-weightbearing Non-emergency contact: Surgeon Call non-emergency contact if: your pain is not controlled, your temperature is above 101.5 and your wound has increased redness Follow-up/Referrals: Des Hancock MD [Surgeon] - (Follow up in 14 days for your first post operative visit) PCP,NO [Primary Care Provider] - Diet: Regular Addtl Attending Provider Instructions: ACTIVITY RECOMMENDATIONS: SELF CARE INSTRUCTIONS AFTER TOTAL SHOULDER ARTHROPLASTY REVERSE A. You may do daily exercises as taught in physical therapy while in hospital. No lifting with the operative arm. B. You are to wear your sling/immobilizer at all times EXCEPT when performing your daily exercises and for hygiene purposes. C. You may perform dry, daily dressing changes. Please keep your incision covered. You may shower 48 hours after surgery. Do not apply soap or any ointment/lotions directly over incision. Do not soak incision in bath tub/swimming pool. D. You may use ice as needed to operative shoulder. SPECIAL CARE INSTRUCTIONS: VERY IMPORTANT TO READ AND REVIEW A. There are a few signs you need to watch for after you are home. Call [facility] at [phone] if you experience any of the followin. Increased severe shoulder pain. Some pain is expected especially when you exercise. 2. Increased swelling in you shoulder or arm; pain or swelling in either upper extremity. 3. Any fluid drainage from the incision. 4. Shortness of breath or chest pain. B. Please call [facility] at [phone] if you have any questions or concerns about your operation or recovery. C. Call your physician if: 1. Temperature is greater than 101 degrees (F). 2. Pain is not relieved by prescribed pain medications. 3. Increase drainage or redness from incision. 4. Unanswered questions or concerns. FOLLOW UP VISIT: Please call [facility] at [phone] to schedule a follow up appointment with Dr. Hancock or his PA in 12-14 days from your surgery date. Stand-Alone Forms: [facility] PayPay, Opioid Pain Management, Smoking Cessation Medications and DC Order Prescriptions: New aspirin 81 mg Tablet,Delayed Release (Dr/Ec) 81 mg PO BID 30 Days Qty: 60 RF: 0 cefadroxil 500 mg capsule 500 mg PO BID Qty: 14 RF: 0 oxycodone 5 mg Tablet 5 mg PO Q4H MDD 6 PRN (Reason: pain) Qty: 30 RF: 0 Continued ipratropium-albuterol 0.5 mg-3 mg(2.5 mg base)/3 mL Solution For Nebulization 3 ml INHALATION QID PRN (Reason: Wheezing) RF: 0 fluticasone propion-salmeterol [Advair Diskus] 500-50 mcg/dose Blister With Device 1 inh INHALATION BID RF: 0 montelukast [Singulair] 10 mg Tablet 10 mg PO QAM RF: 0 albuterol sulfate 90 mcg/actuation Hfa Aerosol Inhaler 2 puff INHALATION QID PRN (Reason: Wheezing) RF: 0 multivitamin Capsule 1 cap PO QAM RF: 0 diclofenac sodium 75 mg Tablet,Delayed Release (Dr/Ec) 75 mg PO BID RF: 0 acetaminophen [Tylenol Extra Strength] 500 mg Tablet 1,500 mg PO Q12 PRN (Reason: Pain) RF: 0 Discontinued tramadol 50 mg Tablet 50 mg PO BID RF: 0 Discharge Orders: Discharge Order (Routine); Ordered 10/07/21 Ordered By: Mauricio Altman Admission Data Admit Date/Time: 10/06/21 18:05 Attending Provider: Des Hancock Admit Provider: Des Hancock Primary Care Provider: PCP,NO Other Providers: Jd Mann Other Interventions: Discharge Summary Assessment (RN) Last Done: 10/07/21 12:44
== END 2021-10-07 13:43 | disposition home or self-care (01) | DRG 483 ==
LOC: ASU 10:46 → 3E 18:05